=== PATIENT | male | born 1990 | race American Indian/Alaskan Native ===

== ENCOUNTER 2021-04-04 14:09 | Emergency (ER) | payer SELFPAY ==
--- NOTE | 2021-04-04 14:34 | Emergency Department Report ---
HPI - General Time Seen by Provider: 04/04/21 14:27 - HPI HPI: 30-year-old -[place] male presents to the emergency department via EMS from home in cardiac arrest. EMS says that the initial call was for respiratory distress. Apparently, in the time between the initial EMS call and EMS arrival the patient was witnessed going unresponsive. Unknown if there was bystander CPR initiated. By the time EMS arrived the patient was pulseless and in asystole. They began doing chest compressions and shortly afterwards placed a Justin airway and began giving bag valve ventilation. They were unsuccessful placing peripheral IVs and unsuccessful placing an IO after 2 attempts. Patient had an Accu-Chek done with EMS that was about 115. Apparently the patient was recently discharged from another hospital 2 days ago after he had been diagnosed with COVID-19 infection and subsequently developed a pulmonary embolus, or multiple emboli. The patient presents into bed #23 about 45 minutes after the initial EMS call and he is still pulseless and in asystole. ED Review of Systems ROS: Stated complaint: CARDIAC ARREST Other details as noted in HPI Comment: Unobtainable due to pts medical conditions Physical Exam - Physical Exam Physical Exam: GENERAL: Patient is ill-appearing and unresponsive. HENT: Normocephalic. Atraumatic. EYES: Pupils are fixed and dilated. NECK: Supple. Trachea appears midline. CHEST/LUNGS: There are no spontaneous respirations. HEART/CARDIOVASCULAR: There are no spontaneous heart sounds. ABDOMEN: Abdomen is soft. Obese habitus. SKIN: Skin is cool but dry. NEURO: Unresponsive. Does not withdraw to painful stimuli. Does not follow any commands. MUSCULOSKELETAL: There is no obvious deformity. There is no evidence of acute injury. No palpable femoral or radial pulses. ED Medical Decision Making - Medical Decision Making This patient came into the emergency department in cardiac arrest after an initial EMS call for respiratory distress followed by a witnessed arrest. EMS placed a Justin airway and gave bag valve ventilation, as well as chest compressions. They were unable to establish a peripheral IV or intraosseous line and therefore did not give any ACLS medication prior to arrival. The patient arrives to our emergency department still pulseless and in asystole and this is about 45 minutes after the initial EMS call. I was able to place a right proximal tibial intraosseous line. We continued ACLS protocol including bag valve ventilation through the Justin airway, high-quality chest compressions. Overall we did 4 rounds of ACLS. The medications were given as such: Round 1: Epinephrine and sodium bicarbonate Round 2: Epinephrine Round 3: Epinephrine and calcium Round 4: Epinephrine Each time the patient remained pulseless and in asystole except for the last around in which the patient was in pulseless electrical activity. Pupils are fixed and dilated. There are no spontaneous heart or breath sounds. No palpable pulses to the radial or femoral arteries. Time of called at 2:26 PM. The patient's was notified and given the opportunity to see the patient postmortem. She says that the patient recently was admitted to another hospital with DVT and PE. He had been on a heparin drip while in the hospital and was discharged home on Eliquis and pain medication. However they had not yet filled the prescription. Critical Care Time: Yes Critical care time in (mins) excluding proc time.: 31 Critical care attestation.: If time is entered above; I have spent that time in minutes in the direct care of this critically ill patient, excluding procedure time. Critical care time were spent on this patient in doing the initial evaluation, supervision of ACLS protocol, discussion with the patient's family. Critical Care Time: 31 minutes ED Disposition Clinical Impression: Cardiac arrest Acute respiratory failure Qualifiers: Respiratory failure complication: unspecified whether with hypoxia or hypercapnia Qualified Code(s): J96.00 - Acute respiratory failure, unspecified whether with hypoxia or hypercapnia Disposition: 20 Is pt being admited?: No Time of Disposition: 15:27
== END 2021-04-04 18:00 ==
LOC: ED 14:09 → EDSTATUS 14:35 → ED 18:00
DX: I46.9 Cardiac arrest, cause unspecified (principal); J96.00 Acute respiratory failure, unspecified whether with hypoxia or hypercapnia